=== PATIENT | female | born 1955 | race Caucasian/White ===

== ENCOUNTER 2018-11-22 12:36 | Emergency (ER) | payer BC ==
[~2018-11-22] VITALS: Ht 162.6 cm; Wt 68.0 kg
[2018-11-22] MEDS ORDERED: OMEPRAZOLE 20 M20 M1 PO (12:45)
[2018-11-22] MEDS ORDERED: LOPRESSOR25 PO (12:46)
[2018-11-22 13:37] VITALS: BP 128/63
== END 2018-11-22 13:37 | disposition home or self-care (01) ==
LOC: ER 12:36
DX: R60.0 Localized edema (principal); Z88.8 Allergy status to other drugs, medicaments and biological substances